=== PATIENT | female | born 1990 | race African-American/Black ===

== ENCOUNTER 2021-02-02 16:07 | Emergency (ER) | payer BC, SELFPAY ==
[2021-02-02] MEDS ORDERED: Ketorolac Tromethamine 30 MG/ML VIAL ONE (17:10)
[2021-02-02] MEDS ORDERED: Cyclobenzaprine 10 MG TAB ONE (17:11)
== END 2021-02-02 17:29 | disposition home or self-care (01) ==
LOC: CSHERS 16:07
DX: S39.012A Strain of muscle, fascia and tendon of lower back, initial encounter (principal); J45.909 Unspecified asthma, uncomplicated; F17.210 Nicotine dependence, cigarettes, uncomplicated
CPT/HCPCS: 96372; 99283; J1885

== ENCOUNTER 2022-05-04 13:56 | Emergency (ER) | payer SELFPAY, OTHER ==
[2022-05-04 14:39] LABS: #Eosinphils 0.2 10x3/uL (0.0-0.5); #Monocytes 0.9 10x3/uL (0.0-1.1); #Neutrophils 6.3 10x3/uL (1.5-8.4); %Basophils 0.2 % (0.0-2.0); %Eosinophils 1.7 % (0.0-6.0); %Lymphocytes 30.4 % (18.0-47.0); %Monocytes 8.7 % (0.0-10.0); %Neutrophils 58.7 % (40.0-75.0); Hemoglobin 10.6 g/dL (12.0-15.5); Mean Corpuscular HGB CONC 32.7 g/dL (32.0-36.0); Mean Corpuscular Hemoglobin 27.7 pg (27.0-33.0); Mean Corpuscular Volume 84.8 fl (81.6-98.3); Mean Platelet Volume 9.7 fl (7.4-10.4); Platelet Count 249 10x3/uL (150-450); RBC Distribution Width 16.1 % (11.5-14.5); Red Blood Cell (RBC) Count 3.82 10x6/uL (3.90-5.03); White Blood Cell (WBC) Count 10.8 10x3/uL (3.5-10.5)
[2022-05-04 14:41] LABS: BHCG - Serum Negative (NEGATIVE); Pregs Control Background? CLEAR/WHITE (CLR/WHITE); Pregs Control Bar Appear? YES (CONTROL BAR)
[2022-05-04 14:44] LABS: Anion Gap 13 mmol/L (10-20); BUN (Urea Nitrogen) 5 mg/dL (7.0-18.7); Calc. Creatinine Clearance 0 mL/min (70-130); Calcium 8.7 mg/dL (7.8-10.44); Carbon Dioxide 23 mmol/L (22-29); Chloride 105 mmol/L (98-107); Estimated GFR 115; Glucose 100 mg/dL (70-105); Potassium 3.3 mmol/L (3.5-5.1); Sodium 138 mmol/L (136-145)
[2022-05-04 14:55] LABS: Bilirubin Neg (Negative); Blood, Urine 10 (Negative); Clarity Clear (Clear); Glucose, Urine (Dipstick) Normal (Negative); Ketone, Urine Negative (Negative); Leukocyte 100 (Negative); Nitrite Negative (Negative); Protein, Urine (Dipstick) 15 mg/dl (Neg-Trace)
[2022-05-04 15:46] LABS: RBC/HPF 0-3 HPF (0-3)
[2022-05-04 15:48] LABS: Mucous/LPF 2+ LPF (<2+)
[2022-05-04 15:49] LABS: Bacteria/HPF 1+ HPF (None Seen)
== END 2022-05-04 16:44 | disposition home or self-care (01) ==
LOC: CSHERS 13:56
DX: S33.5XXA Sprain of ligaments of lumbar spine, initial encounter (principal); S43.402A Unspecified sprain of left shoulder joint, initial encounter; S09.90XA Unspecified injury of head, initial encounter; F17.210 Nicotine dependence, cigarettes, uncomplicated; V49.9XXA Car occupant (driver) (passenger) injured in unspecified traffic accident, initial encounter
CPT/HCPCS: 70450; 74177; 80048; 81003; 81015; 84703; 85025

== ENCOUNTER 2023-07-31 08:42 | Emergency (ER) | payer OTHER, SELFPAY ==
[2023-07-31] MEDS ORDERED: Ketorolac Tromethamine 30 MG/ML VIAL ONE (09:17)
[2023-07-31] MEDS ORDERED: Ondansetron PF 4 MG/2 ML Vial ONE (09:17)
[2023-07-31 09:25] LABS: #Eosinphils 0.1 10x3/uL (0.0-0.5); #Monocytes 0.4 10x3/uL (0.0-1.1); #Neutrophils 9.2 10x3/uL (1.5-8.4); %Basophils 0.2 % (0.0-2.0); %Eosinophils 0.5 % (0.0-6.0); %Lymphocytes 13.2 % (18.0-47.0); %Monocytes 3.9 % (0.0-10.0); %Neutrophils 81.8 % (40.0-75.0); Hematocrit 32.6 % (34.9-44.5); Hemoglobin 10.7 g/dL (12.0-15.5); Mean Corpuscular HGB CONC 32.8 g/dL (32.0-36.0); Mean Corpuscular Hemoglobin 27.2 pg (27.0-33.0); Mean Corpuscular Volume 82.7 fl (81.6-98.3); Mean Platelet Volume 9.4 fl (7.4-10.4); Platelet Count 324 10x3/uL (150-450); RBC Distribution Width 17.6 % (11.5-14.5); Red Blood Cell (RBC) Count 3.94 10x6/uL (3.90-5.03); White Blood Cell (WBC) Count 11.2 10x3/uL (3.5-10.5)
[2023-07-31 09:52] LABS: ALT (SGPT) 23 U/L (8-55); AST (SGOT) 30 U/L (5-34); Albumin 4.1 g/dL (3.5-5.0); Alkaline Phosphatase 107 U/L (40-110); Anion Gap 14 mmol/L (10-20); BUN (Urea Nitrogen) 5 mg/dL (7.0-18.7); Bilirubin, Total 0.4 mg/dL (0.2-1.2); Calc. Creatinine Clearance 0 mL/min (70-130); Calcium 9.1 mg/dL (7.8-10.44); Carbon Dioxide 22 mmol/L (22-29); Chloride 105 mmol/L (98-107); Estimated GFR 117; Globulin 4.8 g/dL (2.4-3.5); Glucose 116 mg/dL (70-105); Lipase 16 U/L (8-78); Protein, Total 8.9 g/dL (6.0-8.3); Sodium 137 mmol/L (136-145)
[2023-07-31 10:31] LABS: Bilirubin Neg (Negative); Blood, Urine Negative (Negative); Clarity Clear (Clear); Glucose, Urine (Dipstick) Normal (Negative); Ketone, Urine 50 mg/dL (Negative); Leukocyte 25 (Negative); Nitrite Negative (Negative); Protein, Urine (Dipstick) Negative (Neg-Trace); Specific Gravity, Urine 1.015 (1.005-1.030); Urobilinogen Normal mg/dL (Less than 2)
[2023-07-31 10:33] LABS: Pregnancy Test - Urine (BHCG) Negative (Negative); Pregu Control Background? CLEAR/WHITE (CLR/WHITE); Pregu Control Bar Appear? YES (CONTROL BAR); Specific Gravity 1.015 (1.002-1.036)
[2023-07-31 11:03] LABS: Bacteria/HPF Rare-Few HPF (None Seen); CAUTI Indications for Culture Pelvic or flank pain; Mucous/LPF 1+ LPF (<2+); RBC/HPF None Seen HPF (0-3); Squamous Epithelial 0-3 HPF (0-3); WBC/HPF 0-3 HPF (0-3)
[2023-07-31 11:04] LABS: Urine Culture Reflex No No
== END 2023-07-31 11:42 | disposition home or self-care (01) ==
LOC: CSHERS 08:42
DX: K52.9 Noninfective gastroenteritis and colitis, unspecified (principal); R11.2 Nausea with vomiting, unspecified; F17.210 Nicotine dependence, cigarettes, uncomplicated
CPT/HCPCS: 80053; 81001; 81025; 83690; 85025; 96361; 96374; 96375; J1885; J2405

== ENCOUNTER 2024-04-20 15:08 | Emergency (ER) | payer OTHER ==
[2024-04-20 15:39] LABS: Bilirubin Neg (Negative); Blood, Urine Negative (Negative); Clarity Clear (Clear); Glucose, Urine (Dipstick) Normal (Negative); Ketone, Urine Negative (Negative); Leukocyte 100 (Negative); Nitrite Negative (Negative); Protein, Urine (Dipstick) 30 mg/dl (Neg-Trace); Specific Gravity, Urine 1.015 (1.005-1.030)
[2024-04-20 15:43] LABS: Pregnancy Test - Urine (BHCG) Negative (Negative); Pregu Control Background? CLEAR/WHITE (CLR/WHITE); Pregu Control Bar Appear? YES (CONTROL BAR); Specific Gravity 1.015 (1.002-1.036)
[2024-04-20] MEDS ORDERED: Ondansetron ODT 4 MG TAB ONE (15:48)
[2024-04-20 15:58] LABS: CAUTI Indications for Culture Pelvic or flank pain; RBC/HPF 0-3 HPF (0-3); Trichomonas/HPF 1+ HPF (None Seen)
[2024-04-20 16:00] LABS: Bacteria/HPF 2+ HPF (None Seen); Mucous/LPF 3+ LPF (<2+)
[2024-04-20 16:03] LABS: Urine Culture Reflex No No
[2024-04-20] MEDS ORDERED: cefTRIAXone (ROCEPHIN) 500 MG VIAL ONE (17:08)
[2024-04-20] MEDS ORDERED: Sterile Water 10 ML ONE (17:08)
[2024-04-21 16:07] LABS: Chlamydia by PCR, Vaginal Swab Not Detected (NotDetected); GC by PCR, Vaginal Swab Not Detected (NotDetected)
== END 2024-04-20 17:39 | disposition home or self-care (01) ==
LOC: CSHERS 15:08
DX: N76.0 Acute vaginitis (principal); A59.9 Trichomoniasis, unspecified; Z87.891 Personal history of nicotine dependence
CPT/HCPCS: 81001; 81025; 87480; 87491; 87510; 87591; 87660; 96372; 99283; J0696; Q0162

== ENCOUNTER 2024-09-26 16:15 | Emergency (ER) | payer BC, OTHER, SELFPAY ==
[2024-09-26] MEDS ORDERED: Lidocaine/Transparent Dressing 1 EACH KIT ONE (17:16)
[2024-09-26] MEDS ORDERED: cefTRIAXone (ROCEPHIN) 500 MG VIAL ONE (18:14)
[2024-09-26] MEDS ORDERED: Sterile Water 10 ML ONE (18:15)
== END 2024-09-26 18:34 | disposition home or self-care (01) ==
LOC: CSHERS 16:15
DX: L73.2 Hidradenitis suppurativa (principal); Z20.2 Contact with and (suspected) exposure to infections with a predominantly sexual mode of transmission; Z87.891 Personal history of nicotine dependence
CPT/HCPCS: 10060; 96372; J0696